=== PATIENT | male | born 1985 | race African-American/Black ===

== ENCOUNTER 2016-05-06 12:34 | Inpatient (IN) | payer OTHER ==
[2016-05-06 12:56] VITALS: BMI 29.1
--- NOTE | 2016-05-06 13:27 | HP ---
COWS - Scale Resting Pulse: 0= [place] 80 or Below Sweatin= Chills/Flushing Restless Observation: 1= Difficult to Sit Still Pupil Size: 0= Normal to Room Light Bone or Joint Aches: 1= Mild Discomfort Runny Nose/ Eye Tearin= None GI Upset > 30mins: 0= None Tremor Observation: 2= Slight Tremor Visible Yawning Observation: 2= >3x During Session Anxiety or Irritability: 2=Irritable/Anxious Goose Flesh Skin: 3=Piloerection COWS Score: 12 Admission ROS BHS - HPI Chief Complaint: "I want to get my life back." Allergies/Adverse Reactions: Allergies Allergy/AdvReac Type Severity Reaction Status Date / Time No Known Allergies Allergy Verified 05/06/16 13:00 History of Present Illness: Pt. is a 30 YO male here to Detox from Heroin. This is his first Detox admission at [facility]. Pt. also reports intermittent Cocaine use. Exam Limitations: Other (Severe Lethargy.) - Ebola screening Have you traveled outside of the country in the last 21 days: No Have you had contact with anyone from an Ebola affected area: No Have you been sick,other than usual withdrawal symptoms: No Do you have a fever: No - Review of Systems Constitutional: Diaphoresis, Malaise, Changes in sleep EENT: reports: No Symptoms Reported Respiratory: reports: No Symptoms reported Cardiac: reports: No Symptoms Reported GI: reports: No Symptoms Reported : reports: No Symptoms Reported Musculoskeletal: reports: Joint Stiffness Integumentary: reports: No Symptoms Reported Neuro: reports: Tremors Endocrine: reports: No Symptoms Reported Hematology: reports: No Symptoms Reported Psychiatric: reports: Judgement Intact, Mood/Affect Appropiate, Anxious, Disorientated (To Today's Day / Date and to Location.) Other Systems: Reviewed and Negative Patient History - Patient Medical History Hx Anemia: No Hx Asthma: Yes (On meds.) Hx Chronic Obstructive Pulmonary Disease (COPD): No Hx Cancer: No Hx Cardiac Disorders: No Hx Congestive Heart Failure: No Hx Hypertension: No Hx Hypercholesterolemia: No Hx Pacemaker: No HX Cerebrovascular Accident: No Hx Seizures: No Hx Dementia: No Hx Diabetes: No Hx Gastrointestinal Disorders: No Hx Liver Disease: No Hx Genitourinary Disorders: No Hx Sexually Transmitted Disorders: No Hx Renal Disease (ESRD): No Hx Thyroid Disease: No Hx Human Immunodeficiency Virus (HIV): No (Last Tested approx. 2 months ago: NEGATIVE.) Hx Hepatitis C: No (Last Tested approx. 2 months ago: NEGATIVE.) Hx Depression: No Hx Suicide Attempt: No (PATIENT DENIES CURRENT SI / HI.) Hx Bipolar Disorder: No Hx Schizophrenia: No - Patient Surgical History Past Surgical History: No Hx Neurologic Surgery: No Hx Cataract Extraction: No Hx Cardiac Surgery: No Hx Lung Surgery: No Hx Breast Surgery: No Hx Breast Biopsy: No Hx Abdominal Surgery: No Hx Appendectomy: No Hx Cholecystectomy: No Hx Genitourinary Surgery: No Hx Orthopedic Surgery: No Anesthesia Reaction: No - PPD History Previous Implant?: Yes Documented Results: Negative w/o proof Implanted On Prior [facility] Admission?: No PPD to be Administered?: Yes - Reproductive History Patient is a Female of Child Bearing Age (11 -55 yrs old): No (PATIENT IS MALE.) - Smoking Cessation Smoking history: Current every day smoker Have you smoked in the past 12 months: Yes Aproximately how many cigarettes per day: 20 Cigars Per Day: 0 Hx Chewing Tobacco Use: No Initiated information on smoking cessation: Yes 'Breaking Loose' booklet given: 05/06/16 (GIVEN ON UNIT.) - Substance & Tx. History Hx Alcohol Use: No Hx Substance Use: Yes Substance Use Type: Cocaine, Heroin Hx Substance Use Treatment: Yes (1 previous Detox admission at location other than [facility].) - Substances Abused Heroin Route: Inhalation Frequency: Daily Amount used: $100 Age of first use: 17 Date of Last Use: 05/06/16 Cocaine Route: Inhalation Frequency: 1-2 times per week Amount used: $ 50. Age of first use: 17 Date of Last Use: 05/05/16 Family Disease History - Family Disease History Family History: Denies Admission Physical Exam BHS - Vital Signs Vital Signs: Vital Signs - 24 hr 05/06/16 12:53 Temperature 97.1 F L Pulse Rate 67 Respiratory 18 Rate Blood Pressure 120/78 - Physical General Appearance: Yes: No Apparent Distress, Nourished, Appropriately Dressed , Tremorous, Irritable HEENTM: Yes: Hearing grossly Normal, Normocephalic, Normal Voice, YOLI, Pharynx Normal Respiratory: Yes: Chest Non-Tender, No Respiratory Distress, Wheezing Neck: Yes: No masses,lesions,Nodules, Supple, Trachea in good position Breast: Yes: Breast Exam Deferred Cardiology: Yes: Regular Rhythm, Regular Rate, S1, S2 Abdominal: Yes: Normal Bowel Sounds, Non Tender, Soft, Protuberent Genitourinary: Yes: Within Normal Limits Back: Yes: Normal Inspection Musculoskeletal: Yes: full range of Motion, Gait Steady Extremities: Yes: Normal Inspection, Normal Range of Motion, Non-Tender, Tremors Neurological: Yes: Normal Response, Disoriented (To Day / Date and to Location.) Integumentary: Yes: Normal Color, Dry, Warm Lymphatic: Yes: Within Normal Limits - Diagnostic (1) Opioid dependence with withdrawal Current Visit: Yes Status: Acute (2) Cocaine dependence, uncomplicated Current Visit: Yes Status: Acute (3) Nicotine dependence Current Visit: Yes Status: Chronic Qualifiers: Nicotine product type: cigarettes Substance use status: uncomplicated Qualified Code(s): F17.210 - Nicotine dependence, cigarettes, uncomplicated (4) Asthma Current Visit: Yes Status: Chronic Qualifiers: Asthma severity: mild intermittent Asthma complication type: uncomplicated Qualified Code(s): J45.20 - Mild intermittent asthma, uncomplicated Cleared for Admission [facility] - Detox or Rehab [facility] Level of Care: Medically Managed (Pt. reports that has was prescribed both Amoxicillin and Prednisone (20 mg) for Pneumonia (by Addison Yates) on 2016. Pt. has bottles of both medication present with him; however, pt. reports that he has NOT taken either medication for the last several days. Pt. denies any unusual Respiratory symptoms, including SOB and chest pain.) Detox Regimen/Protocol: Methadone [facility] Breath Alcohol Content Breath Alcohol Content: 0 Urine Drug Screen - Results Drug Screen Negative: No Urine Drug Screen Results: RADHA-Cocaine, OPI-Opiates, OXY-Oxycodone
[2016-05-06] MEDS ORDERED: IBUPROFEN 400 MG TABLET (FP) PO PRN (13:52)
[2016-05-06] MEDS ORDERED: LOPERAMIDE HCL 2 MG CAPSULE PO PRN (13:52)
[2016-05-06] MEDS ORDERED: MENTHOL/PHENOL 1 EACH UD MM PRN (13:52)
[2016-05-06] MEDS ORDERED: hydrOXYzine PAMOATE 50 MG CAPSULE (FP) PO PRN (13:52)
[2016-05-06] MEDS ORDERED: METHADONE HCL 10 MG TABLET (FOR DETOX USE ONLY) PO ONE ×2 (13:52→23:00)
[2016-05-06] MEDS ORDERED: P-EPHED 60MG/TRIPROLIDI 2.5MG TABLET PO PRN (13:52)
[2016-05-06] MEDS ORDERED: MAGNESIUM HYDROX 2400MG/30ML ORAL SUSPENSION 30 ML CUP PO PRN (13:52)
[2016-05-06] MEDS ORDERED: MAGNESIUM CITRATE 300 ML BOTTLE PO PRN (13:52)
[2016-05-06] MEDS ORDERED: ACETAMINOPHEN 325 MG TABLET (FP) PO PRN (13:52)
[2016-05-06] MEDS ORDERED: diphenhydrAMINE HCL 50 MG CAPSULE PO PRN (13:52)
[2016-05-06] MEDS ORDERED: guaiFENesin/D-METHORPHAN HB 10 ML UNIT-DOSE CUPS PO PRN (13:52)
[2016-05-06] MEDS ORDERED: MAG HYDROX/AL HYDROX/SIMETH 30 ML UNIT-DOSE CUP PO PRN (13:52)
[2016-05-06] MEDS: diazePAM 5 MG TABLET PO PRN (15:14)
[2016-05-06] MEDS: NICOTINE 21 MG/24 HOURS TOPICAL PATCH TD SCH (15:14)
--- NOTE | 2016-05-06 16:51 | EKG ---
Test Reason : Blood Pressure : / mmHG Vent. Rate : 045 BPM Atrial Rate : 045 BPM P-R Int : 148 ms QRS Dur : 102 ms QT Int : 446 ms P-R-T Axes : 043 007 007 degrees QTc Int : 385 ms SINUS BRADYCARDIA WITH SINUS ARRHYTHMIA MINIMAL VOLTAGE CRITERIA FOR LVH, MAY BE NORMAL VARIANT ST ELEVATION, CONSIDER EARLY REPOLARIZATION BORDERLINE ECG NO PREVIOUS ECGS AVAILABLE Confirmed by YULY MAI MD ([id number]) on 05/06/2016 4:50:34 PM Referred By: Confirmed By:YULY MAI MD
[2016-05-06 20:32] LABS: URINE APPEARANCE CLEAR; URINE BILIRUBIN NEGATIVE (NEGATIVE); URINE BLOOD NEGATIVE (NEGATIVE); URINE COLOR LTYELLOW; URINE GLUCOSE (UA) NEGATIVE (NEGATIVE); URINE KETONE NEGATIVE (NEGATIVE); URINE LEUK ESTERASE NEGATIVE (NEGATIVE); URINE NITRITE NEGATIVE (NEGATIVE); URINE PROTEIN NEGATIVE (NEGATIVE); URINE UROBILINOGEN NEGATIVE E.U./dl (0.2-1.0)
[2016-05-06] MEDS: THIAMINE HCL 100 MG TABLET (FP) PO SCH (23:00)
[2016-05-06] MEDS: ALBUTEROL SO4 6.7 GM HFA INHALER IH PRN (23:03)
[2016-05-07] MEDS: NICOTINE 21 MG/24 HOURS TOPICAL PATCH TD SCH (09:47)
[2016-05-07] MEDS: PRENATAL VITAMINS W/ FOLIC ACID TABLET (FP) PO SCH (09:47)
[2016-05-07] MEDS: diazePAM 5 MG TABLET PO PRN (09:47)
[2016-05-07] MEDS: ALBUTEROL SO4 6.7 GM HFA INHALER IH PRN (09:50)
[2016-05-07] MEDS: NICOTINE POLACRILEX 2 MG GUM BUC PRN (09:50)
[2016-05-07] MEDS ORDERED: METHADONE HCL 10 MG TABLET (FOR DETOX USE ONLY) PO ONE (10:00)
--- NOTE | 2016-05-07 14:44 | PN ---
BHS COWS - Scale Resting Pulse: 0= [place] 80 or Below Sweatin=Flushed/Facial Moisture Restless Observation: 3= Extraneous Movement Pupil Size: 0= Normal to Room Light Bone or Joint Aches: 2= Severe Diffuse Aches Runny Nose/ Eye Tearin= Runny Nose/Eyes GI Upset > 30mins: 2= Nausea/Diarrhea Tremor Observation of Outstretched Hands: 2= Slight Tremor Visible Yawning Observation: 0= None Anxiety or Irritability: 2=Irritable/Anxious Goose Flesh Skin: 0=Smooth Skin COWS Score: 15 BHS Progress Note (SOAP) Subjective: Anxious, sweating, nausea, restless, interrupted sleep Objective: 05/07/16 14:43 Last Vital Signs Temp Pulse Resp BP Pulse Ox 97.2 F L 61 18 134/108 05/07/16 14:05 05/07/16 14:05 05/07/16 14:05 05/07/16 14:05 Laboratory Tests 05/06/16 19:00 Urine Color Ltyellow Urine Appearance Clear Urine pH 6.0 Ur Specific [place] 1.019 Urine Protein Negative Urine Glucose (UA) Negative Urine Ketones Negative Urine Blood Negative Urine Nitrite Negative Urine Bilirubin Negative Urine Urobilinogen Negative Ur Leukocyte Esterase Negative Noted with elevated blood pressure UA noted, result normal Assessment: 05/07/16 14:46 Withdrawal symptoms Noted with elevated blood pressure Plan: Continue detox Elevated blood pressure: start clonidine 0.1mg q8hr prn Admission labs ordered for tomorrow morning
[2016-05-07] MEDS ORDERED: cloNIDine HCL 0.1 MG TABLET PO PRN (14:48)
[2016-05-07] MEDS: THIAMINE HCL 100 MG TABLET (FP) PO SCH (22:39)
[2016-05-08] MEDS: diazePAM 5 MG TABLET PO PRN ×2 (05:31→22:47)
[2016-05-08] MEDS: ALBUTEROL SO4 6.7 GM HFA INHALER IH PRN ×2 (05:32→22:47)
[2016-05-08] MEDS ORDERED: METHADONE HCL 5 MG TABLET (FOR DETOX USE ONLY) PO ONE (10:00)
[2016-05-08 10:09] LABS: MCH 28.7 pg (25.7-33.7); MCHC 33.4 g/dl (32.0-35.9); MEAN CELL VOLUME 86.1 fl (80-96); MEAN PLT VOLUME 9.5 fl (7.5-11.1); PLATELET COUNT 219 K/MM3 (134-434); RDW 13.4 % (11.9-15.9); WHITE BLOOD COUNT 8.7 K/mm3 (4.0-10.0)
[2016-05-08 10:28] LABS: ALBUMIN 3.4 g/dl (3.4-5.0); ALK PHOS 63 U/L (45-117); ANION GAP 9 (8-16); BILIRUBIN,TOTAL 0.6 mg/dL (0.2-1.0); CALCIUM 8.8 mg/dL (8.5-10.1); CO2 29 mmol/L (21-32); GLUCOSE,RANDOM 76 mg/dL (74-106); SGOT/AST 21 U/L (15-37); SGPT/ALT 71 U/L (12-78)
[2016-05-08] MEDS: NICOTINE 21 MG/24 HOURS TOPICAL PATCH TD SCH (10:46)
[2016-05-08] MEDS: PRENATAL VITAMINS W/ FOLIC ACID TABLET (FP) PO SCH (10:46)
[2016-05-08 11:10] LABS: PLATELET ESTIMATE ADEQUATE (NORMAL)
--- NOTE | 2016-05-08 13:12 | CONSULT ---
[facility] Psychiatric Consult - Data Date of interview: 05/08/16 Admission source: [facility] Identifying data: This is 30 years old male with no psychiatric hospitalization history intoxicated w9ith: Heroin, Cocaine and Nicotine Substance Abuse History: - Smoking Cessation. Smoking history: Current every day smoker. Have you smoked in the past 12 months: Yes. Aproximately how many cigarettes per day: 20. Cigars Per Day: 0. Hx Chewing Tobacco Use: No. Initiated information on smoking cessation: Yes. 'Breaking Loose' booklet given : 05/06/16 (GIVEN ON UNIT.). - Substance & Tx. History. Hx Alcohol Use: No. Hx Substance Use: Yes. Substance Use Type: Cocaine, Heroin. Hx Substance Use Treatment: Yes (1 previous Detox admission at location other than [facility] - Substances Abused. Heroin. Route: Inhalation. Frequency: Daily. Amount used: $100. Age of first use: 17. Date of Last Use: 05/06/16. Cocaine. Route: Inhalation. Frequency: 1-2 times per week. Amount used: $ 50. Age of first use: 17. Date of Last Use: 05/05/16 Medical History: Asthma Psychiatric History: Denies Physical/Sexual Abuse/Trauma History: Denies Additional Comment: Observation. Detox Unit Care Protocol Mental Status Exam - Mental Status Exam Alert and Oriented to: Person Patient Appearance: Unkempt Mood: Anxious Affect: Mood Congruent Patient Behavior: Cooperative Speech Pattern: Appropriate Voice Loudness: Mildly Soft/Quiet Thought Process: Goal Oriented Thought Disorder: Being Controlled Hallucinations: Denies Suicidal Ideation: Denies Homicidal Ideation: Denies Insight/Judgement: Fair Sleep: Difficulty falling asleep Appetite: Fair Muscle strength/Tone: Normal Gait/Station: Normal Additional Comments: Observation. Detox Unit Care Protocol Psychiatric Findings - Problem List ([place] 1, 2,3) (1) Cocaine dependence, uncomplicated Current Visit: Yes Status: Acute (2) Opioid dependence with withdrawal Current Visit: Yes Status: Acute (3) Nicotine dependence Current Visit: Yes Status: Chronic Qualifiers: Nicotine product type: cigarettes Substance use status: uncomplicated Qualified Code(s): F17.210 - Nicotine dependence, cigarettes, uncomplicated (4) Drug-induced mood disorder Current Visit: Yes Status: Acute - Initial Treatment Plan Initial Treatment Plan: Observation. Detox Unit Care Protocol
--- NOTE | 2016-05-08 14:12 | PN ---
S COWS - Scale Resting Pulse: 0= [place] 80 or Below Sweatin=Flushed/Facial Moisture Restless Observation: 0= Sits Still Pupil Size: 0= Normal to Room Light Bone or Joint Aches: 1= Mild Discomfort Runny Nose/ Eye Tearin= Runny Nose/Eyes GI Upset > 30mins: 0= None Tremor Observation of Outstretched Hands: 2= Slight Tremor Visible Yawning Observation: 1= 1-2x During Session Anxiety or Irritability: 2=Irritable/Anxious Goose Flesh Skin: 3=Piloerection COWS Score: 13 S Progress Note (SOAP) Subjective: Tremors, Fatigue, Body Aches. Objective: PT. A & O X 3. PT. DENIES COUGH, SOB, AND CHEST PAIN. 05/08/16 14:09 Vital Signs Temperature 96.6 F L 05/08/16 13:26 Pulse Rate 58 L 05/08/16 13:26 Respiratory Rate 18 05/08/16 13:26 Blood Pressure 136/98 05/08/16 13:26 O2 Sat by Pulse Oximetry (%) Laboratory Last Values WBC 8.7 K/mm3 (4.0-10.0) 05/08/16 07:00 RBC 5.01 M/mm3 (4.00-5.60) 05/08/16 07:00 Hgb 14.4 GM/dL (11.7-16.9) 05/08/16 07:00 Hct 43.1 % (35.4-49) 05/08/16 07:00 MCV 86.1 fl (80-96) 05/08/16 07:00 MCHC 33.4 g/dl (32.0-35.9) 05/08/16 07:00 RDW 13.4 % (11.9-15.9) 05/08/16 07:00 Plt Count 219 K/MM3 (134-434) 05/08/16 07:00 MPV 9.5 fl (7.5-11.1) 05/08/16 07:00 Neutrophils % 38.0 % (42.8-82.8) L 05/08/16 07:00 Lymphocytes % 45.0 % (8-40) H 05/08/16 07:00 Monocytes % 4.0 % (3.8-10.2) 05/08/16 07:00 Eosinophils % 9.0 % (0-4.5) H 05/08/16 07:00 Basophils % 0.0 % (0-2.0) 05/08/16 07:00 Band Neutrophils 0.0 % (0-10) 05/08/16 07:00 Differential Comment Manual diff done 05/08/16 07:00 Reactive Lymphocytes 4 % (0-80) 05/08/16 07:00 Platelet Estimate Adequate (NORMAL) 05/08/16 07:00 Sodium 139 mmol/L (136-145) 05/08/16 07:00 Potassium 4.3 mmol/L (3.5-5.1) 05/08/16 07:00 Chloride 101 mmol/L (98-107) 05/08/16 07:00 Carbon Dioxide 29 mmol/L (21-32) 05/08/16 07:00 Anion Gap 9 (8-16) 05/08/16 07:00 BUN 18 mg/dL (7-18) 05/08/16 07:00 Creatinine 1.0 mg/dL (0.7-1.3) 05/08/16 07:00 Creat Clearance w eGFR > 60 (>60) 05/08/16 07:00 Random Glucose 76 mg/dL (74-106) 05/08/16 07:00 Calcium 8.8 mg/dL (8.5-10.1) 05/08/16 07:00 Total Bilirubin 0.6 mg/dL (0.2-1.0) 05/08/16 07:00 AST 21 U/L (15-37) 05/08/16 07:00 ALT 71 U/L (12-78) 05/08/16 07:00 Alkaline Phosphatase 63 U/L (45-117) 05/08/16 07:00 Total Protein 6.0 g/dl (6.4-8.2) L 05/08/16 07:00 Albumin 3.4 g/dl (3.4-5.0) 05/08/16 07:00 Urine Color Ltyellow 05/06/16 19:00 Urine Appearance Clear 05/06/16 19:00 Urine pH 6.0 (5.0-8.0) 05/06/16 19:00 Ur Specific [place] 1.019 (1.001-1.035) 05/06/16 19:00 Urine Protein Negative (NEGATIVE) 05/06/16 19:00 Urine Glucose (UA) Negative (NEGATIVE) 05/06/16 19:00 Urine Ketones Negative (NEGATIVE) 05/06/16 19:00 Urine Blood Negative (NEGATIVE) 05/06/16 19:00 Urine Nitrite Negative (NEGATIVE) 05/06/16 19:00 Urine Bilirubin Negative (NEGATIVE) 05/06/16 19:00 Urine Urobilinogen Negative E.U./dl (0.2-1.0) 05/06/16 19:00 Ur Leukocyte Esterase Negative (NEGATIVE) 05/06/16 19:00 RPR Titer Nonreactive (NONREACTIVE) 05/08/16 07:00 LABS NOTED. RESULT OF CXR DONE TODAY NOTED (NO ACUTE PATHOLOGY). 05/08/16 14:11 Assessment: 05/08/16 14:11 WITHDRAWAL SYMPTOMS. Plan: CONTINUE DETOX. ADVISED PT. TO FOLLOW-UP WITH BIOMEDICAL MANAGER / REHAB MEDICAL PROVIDER AFTER DISCHARGE FROM DETOX FOR GENERAL MEDICAL ASSESSMENT.
[2016-05-08] MEDS: NICOTINE POLACRILEX 2 MG GUM BUC PRN (22:47)
[2016-05-08] MEDS: THIAMINE HCL 100 MG TABLET (FP) PO SCH (22:55)
[2016-05-09] MEDS: ALBUTEROL SO4 6.7 GM HFA INHALER IH PRN (05:54)
[2016-05-09] MEDS: diazePAM 5 MG TABLET PO PRN (05:55)
[2016-05-09] MEDS: NICOTINE POLACRILEX 2 MG GUM BUC PRN ×2 (05:56→10:41)
[2016-05-09 09:57] VITALS: BP 133/98; PULSE 96; TEMP 95.4
[2016-05-09] MEDS ORDERED: METHADONE HCL 5 MG TABLET (FOR DETOX USE ONLY) PO ONE (10:00)
[2016-05-09] MEDS: PRENATAL VITAMINS W/ FOLIC ACID TABLET (FP) PO SCH (10:39)
[2016-05-09] MEDS: NICOTINE 21 MG/24 HOURS TOPICAL PATCH TD SCH (10:40)
--- NOTE | 2016-05-09 11:05 | PN ---
S Progress Note (SOAP) Subjective: ANXIETY,SWEATING,INTERRUPTED SLEEP,RESTLESS Objective: 05/09/16 11:03 Vital Signs - 8 hr 05/09/16 05/09/16 05/09/16 03:46 06:40 09:56 Temperature 97.3 F L 95.4 F L Pulse Rate 76 96 H Respiratory 18 18 18 Rate Blood Pressure 132/98 133/98 Laboratory Last Values WBC 8.7 K/mm3 (4.0-10.0) 05/08/16 07:00 RBC 5.01 M/mm3 (4.00-5.60) 05/08/16 07:00 Hgb 14.4 GM/dL (11.7-16.9) 05/08/16 07:00 Hct 43.1 % (35.4-49) 05/08/16 07:00 MCV 86.1 fl (80-96) 05/08/16 07:00 MCHC 33.4 g/dl (32.0-35.9) 05/08/16 07:00 RDW 13.4 % (11.9-15.9) 05/08/16 07:00 Plt Count 219 K/MM3 (134-434) 05/08/16 07:00 MPV 9.5 fl (7.5-11.1) 05/08/16 07:00 Neutrophils % 38.0 % (42.8-82.8) L 05/08/16 07:00 Lymphocytes % 45.0 % (8-40) H 05/08/16 07:00 Monocytes % 4.0 % (3.8-10.2) 05/08/16 07:00 Eosinophils % 9.0 % (0-4.5) H 05/08/16 07:00 Basophils % 0.0 % (0-2.0) 05/08/16 07:00 Band Neutrophils 0.0 % (0-10) 05/08/16 07:00 Differential Comment Manual diff done 05/08/16 07:00 Reactive Lymphocytes 4 % (0-80) 05/08/16 07:00 Platelet Estimate Adequate (NORMAL) 05/08/16 07:00 Sodium 139 mmol/L (136-145) 05/08/16 07:00 Potassium 4.3 mmol/L (3.5-5.1) 05/08/16 07:00 Chloride 101 mmol/L (98-107) 05/08/16 07:00 Carbon Dioxide 29 mmol/L (21-32) 05/08/16 07:00 Anion Gap 9 (8-16) 05/08/16 07:00 BUN 18 mg/dL (7-18) 05/08/16 07:00 Creatinine 1.0 mg/dL (0.7-1.3) 05/08/16 07:00 Creat Clearance w eGFR > 60 (>60) 05/08/16 07:00 Random Glucose 76 mg/dL (74-106) 05/08/16 07:00 Calcium 8.8 mg/dL (8.5-10.1) 05/08/16 07:00 Total Bilirubin 0.6 mg/dL (0.2-1.0) 05/08/16 07:00 AST 21 U/L (15-37) 05/08/16 07:00 ALT 71 U/L (12-78) 05/08/16 07:00 Alkaline Phosphatase 63 U/L (45-117) 05/08/16 07:00 Total Protein 6.0 g/dl (6.4-8.2) L 05/08/16 07:00 Albumin 3.4 g/dl (3.4-5.0) 05/08/16 07:00 Urine Color Ltyellow 05/06/16 19:00 Urine Appearance Clear 05/06/16 19:00 Urine pH 6.0 (5.0-8.0) 05/06/16 19:00 Ur Specific [place] 1.019 (1.001-1.035) 05/06/16 19:00 Urine Protein Negative (NEGATIVE) 05/06/16 19:00 Urine Glucose (UA) Negative (NEGATIVE) 05/06/16 19:00 Urine Ketones Negative (NEGATIVE) 05/06/16 19:00 Urine Blood Negative (NEGATIVE) 05/06/16 19:00 Urine Nitrite Negative (NEGATIVE) 05/06/16 19:00 Urine Bilirubin Negative (NEGATIVE) 05/06/16 19:00 Urine Urobilinogen Negative E.U./dl (0.2-1.0) 05/06/16 19:00 Ur Leukocyte Esterase Negative (NEGATIVE) 05/06/16 19:00 RPR Titer Nonreactive (NONREACTIVE) 05/08/16 07:00 LABS NOTED Assessment: 05/09/16 11:04 WITHDRAWAL SX. Plan: CONTINUE DETOX
--- NOTE | 2016-05-09 12:32 | PN ---
[facility] Progress Note Note: Psychiatry Attending's note : Asked to see this patient. Reason : not offered. Already evaluated by Dr Sy on 05/08/16. Note is appreciated. Met with Mr Rasmussen. Issue : referral to suboxone program after detox care. Patient is encouraged to pursue this goal. Redirected to social work team for appropriate follow-up. Patient sent to counselor's office. Benign hospital course.
[2016-05-10] MEDS ORDERED: METHADONE HCL 10 MG TABLET (FOR DETOX USE ONLY) PO ONE (10:00)
[2016-05-11] MEDS ORDERED: METHADONE HCL 5 MG TABLET (FOR DETOX USE ONLY) PO ONE (06:00)
--- NOTE | 2016-05-13 19:54 | DS ---
[facility] Detox Discharge Summary Admission Date: 05/06/16 Discharge Date: 05/09/16 - History Present History: Cocaine Dependence, Opioid Dependence Pertinent Past History: asthma - Physical Exam Results Vital Signs: Vital Signs Temperature 95.4 F L 05/09/16 09:56 Pulse Rate 96 H 05/09/16 09:56 Respiratory Rate 18 05/09/16 09:56 Blood Pressure 133/98 05/09/16 09:56 O2 Sat by Pulse Oximetry (%) Pertinent Admission Physical Exam Findings: Withdrawal sx. Laboratory Last Values WBC 8.7 K/mm3 (4.0-10.0) 05/08/16 07:00 RBC 5.01 M/mm3 (4.00-5.60) 05/08/16 07:00 Hgb 14.4 GM/dL (11.7-16.9) 05/08/16 07:00 Hct 43.1 % (35.4-49) 05/08/16 07:00 MCV 86.1 fl (80-96) 05/08/16 07:00 MCHC 33.4 g/dl (32.0-35.9) 05/08/16 07:00 RDW 13.4 % (11.9-15.9) 05/08/16 07:00 Plt Count 219 K/MM3 (134-434) 05/08/16 07:00 MPV 9.5 fl (7.5-11.1) 05/08/16 07:00 Neutrophils % 38.0 % (42.8-82.8) L 05/08/16 07:00 Lymphocytes % 45.0 % (8-40) H 05/08/16 07:00 Monocytes % 4.0 % (3.8-10.2) 05/08/16 07:00 Eosinophils % 9.0 % (0-4.5) H 05/08/16 07:00 Basophils % 0.0 % (0-2.0) 05/08/16 07:00 Band Neutrophils 0.0 % (0-10) 05/08/16 07:00 Differential Comment Manual diff done 05/08/16 07:00 Reactive Lymphocytes 4 % (0-80) 05/08/16 07:00 Platelet Estimate Adequate (NORMAL) 05/08/16 07:00 Sodium 139 mmol/L (136-145) 05/08/16 07:00 Potassium 4.3 mmol/L (3.5-5.1) 05/08/16 07:00 Chloride 101 mmol/L (98-107) 05/08/16 07:00 Carbon Dioxide 29 mmol/L (21-32) 05/08/16 07:00 Anion Gap 9 (8-16) 05/08/16 07:00 BUN 18 mg/dL (7-18) 05/08/16 07:00 Creatinine 1.0 mg/dL (0.7-1.3) 05/08/16 07:00 Creat Clearance w eGFR > 60 (>60) 05/08/16 07:00 Random Glucose 76 mg/dL (74-106) 05/08/16 07:00 Calcium 8.8 mg/dL (8.5-10.1) 05/08/16 07:00 Total Bilirubin 0.6 mg/dL (0.2-1.0) 05/08/16 07:00 AST 21 U/L (15-37) 05/08/16 07:00 ALT 71 U/L (12-78) 05/08/16 07:00 Alkaline Phosphatase 63 U/L (45-117) 05/08/16 07:00 Total Protein 6.0 g/dl (6.4-8.2) L 05/08/16 07:00 Albumin 3.4 g/dl (3.4-5.0) 05/08/16 07:00 Urine Color Ltyellow 05/06/16 19:00 Urine Appearance Clear 05/06/16 19:00 Urine pH 6.0 (5.0-8.0) 05/06/16 19:00 Ur Specific [place] 1.019 (1.001-1.035) 05/06/16 19:00 Urine Protein Negative (NEGATIVE) 05/06/16 19:00 Urine Glucose (UA) Negative (NEGATIVE) 05/06/16 19:00 Urine Ketones Negative (NEGATIVE) 05/06/16 19:00 Urine Blood Negative (NEGATIVE) 05/06/16 19:00 Urine Nitrite Negative (NEGATIVE) 05/06/16 19:00 Urine Bilirubin Negative (NEGATIVE) 05/06/16 19:00 Urine Urobilinogen Negative E.U./dl (0.2-1.0) 05/06/16 19:00 Ur Leukocyte Esterase Negative (NEGATIVE) 05/06/16 19:00 RPR Titer Nonreactive (NONREACTIVE) 05/08/16 07:00 labs noted - Medication Discharge Medications: Ambulatory Orders Albuterol Sulfate Inhaler - [Ventolin Hfa Inhaler -] 1 - 2 inh PO QID PRN Amoxicillin - [Amoxicillin 500mg Capsule -] 500 mg PO TID 05/06/16 - Diagnosis (1) Cocaine dependence, uncomplicated Status: Acute (2) Drug-induced mood disorder Status: Acute (3) Opioid dependence with withdrawal Status: Acute (4) Asthma Status: Chronic Qualifiers: Asthma severity: mild intermittent Asthma complication type: uncomplicated Qualified Code(s): J45.20 - Mild intermittent asthma, uncomplicated (5) Nicotine dependence Status: Chronic Qualifiers: Nicotine product type: cigarettes Substance use status: uncomplicated Qualified Code(s): F17.210 - Nicotine dependence, cigarettes, uncomplicated - AMA Did Patient Leave Against Medical Advice: Yes
== END 2016-05-09 13:50 | disposition left against medical advice (07) | DRG 770 ==
LOC: YASAS 12:34 → Y3N 13:05
PROVIDERS: ADMIT Internal Medicine; ATTEND Internal Medicine
PROC: HZ2ZZZZ Detoxification Services for Substance Abuse Treatment (ICD-10-PCS; principal; 2016-05-09)
DX: F11.23 Opioid dependence with withdrawal (principal); F14.20 Cocaine dependence, uncomplicated; F17.210 Nicotine dependence, cigarettes, uncomplicated; F19.24 Other psychoactive substance dependence with psychoactive substance-induced mood disorder; J45.20 Mild intermittent asthma, uncomplicated
CPT/HCPCS: 36415; 71020-TC; 80053; 81003; 85025; 86593; 93005; 93010